=== PATIENT | female | born 1980 | race American Indian/Alaskan Native ===

== ENCOUNTER 2016-08-06 08:20 | Emergency (ER) | payer OTHER ==
[2016-08-06 09:41] LABS: Anion Gap 15 mmol/L; BUN/Creatinine Ratio 6.66; Blood Urea Nitrogen 6 mg/dL (7-17); Calcium 8.6 mg/dL (8.4-10.2); Carbon Dioxide 29 mmol/L (22-30); Chloride 103.8 mmol/L (98-107); Glucose 117 mg/dL (65-100); Potassium 3.8 mmol/L (3.6-5.0); Sodium 144 mmol/L (137-145)
[2016-08-06 09:44] LABS: Basophils % (Auto) 0.4 % (0.0-1.8); Eosinophils % (Auto) 0.8 % (0.0-4.3); Hematocrit 39.2 % (30.3-42.9); Hemoglobin 12.9 gm/dl (10.1-14.3); Mean Corpuscular HGB Conc 33 % (30-34); Mean Corpuscular Hemoglobin 30 pg (28-32); Mean Corpuscular Volume 90 fl (79-97); Platelet Count 225 K/mm3 (140-440); Red Blood Count 4.34 M/mm3 (3.65-5.03); White Blood Count 9.3 K/mm3 (4.5-11.0)
[2016-08-06] MEDS ORDERED: CATAPRES PO ONE (11:01)
[2016-08-06] MEDS ORDERED: MORPHINE IV ONE (11:09)
[2016-08-06] MEDS ORDERED: FIORICET PO ONE (11:09)
[2016-08-06] MEDS ORDERED: ZOFRAN IV ONE (11:09)
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
--- NOTE | 2016-08-06 11:33 | Cat Scan Report ---
Cranial CT without contrast. History: Headache/hypertension. Findings: The brain parenchyma is normal. There is no evidence of hemorrhage, infarct, or mass. No extra-axial collections are seen. The ventricles are normal in size and contour. The posterior fossa is unremarkable. The calvarium is intact. There is mild mucoperiosteal thickening in the visualized maxillary sinuses. Impression: 1. No intracranial abnormalities. 2. Minimal evidence of maxillary sinus disease, incompletely imaged.
[2016-08-06 12:41] VITALS: BP 146/95
== END 2016-08-06 12:41 | disposition home or self-care (01) ==
LOC: ED 08:20
DX: G43.909 Migraine, unspecified, not intractable, without status migrainosus (principal); I10 Essential (primary) hypertension; I50.9 Heart failure, unspecified; Z90.710 Acquired absence of both cervix and uterus
CPT/HCPCS: 36415; 70450; 80048; 85025; 93005; 93010; 96374; 96375; 99284; J2270; J2405